=== PATIENT | female | born 2000 | race Caucasian/White ===

== ENCOUNTER 2019-12-09 04:15 | Emergency (ER) | payer OTHER ==
[~2019-12-09] VITALS: Ht 165.1 cm; Wt 75.2 kg
--- NOTE | 2019-12-09 04:39 | ED GU-Female ---
General Chief Complaint: Abdominal/GI Problems Stated Complaint: BACK PAIN,VOMITING Nursing Triage Note: pt states back pain with n/v/d started around 1930 tonight, pt has not taken anything for symptoms Nursing Sepsis Screen: No Definite Risk Source: patient Exam Limitations: no limitations History of Present Illness Date Seen by Provider: Dec 09, 2019 Time Seen by Provider: 04:35 Initial Comments 19-year-old female presents with nausea, vomiting, diarrhea started around 7:30 PM last night. Patient also complains of diffuse abdomen pain but worse in the epigastric and lower part of her abdomen. With severe pain in her back. She does not have any cough or fever. He does not have any dysuria. She does not believe she is because she has an IUD. Allergies and Home Medications Allergies Coded Allergies: No Known Drug Allergies (Unverified , 12/09/19) Patient Home Medication List Home Medication List Reviewed: Yes Review of Systems Review of Systems Constitutional: chills, fever Respiratory: No cough, No short of breath Cardiovascular: No chest pain Gastrointestinal: abdominal pain, diarrhea, nausea, vomiting Genitourinary: no symptoms reported Musculoskeletal: back pain Skin: no symptoms reported Psychiatric/Neurological: No Symptoms Reported Endocrine: No Symptoms Reported Past Ykzkech-Uvgnvk-Lxjoam Hx Past Med/Social Hx: Reviewed Nursing Past Med/Soc Hx Patient Social History Alcohol Use: Denies Use Recreational Drug Use: No Smoking Status: Never a Smoker 2nd Hand Smoke Exposure: No Recent Foreign Travel: No Contact w/Someone Who Travel: No Recent Infectious Disease Expo: No Recent Hopitalizations: No Physical Abuse: No Sexual Abuse: No Mistreated: No Fear: No Seasonal Allergies Seasonal Allergies: No Past Medical History Surgeries: No Respiratory: No Cardiac: No Neurological: No Genitourinary: No Gastrointestinal: No Musculoskeletal: No Endocrine: No HEENT: No Cancer: No Psychosocial: No Integumentary: No Blood Disorders: No Physical Exam Vital Signs Vital Signs - First Documented 12/09/19 04:29 Temp 36.6 Pulse 117 Resp 18 B/P (MAP) 117/71 (86) Pulse Ox 100 O2 Delivery Room Air Capillary Refill : Less Than 3 Seconds Height, Weight, BMI Height: '" Weight: lbs. oz. 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, alert, normal mood/affect, oriented x 3 Skin: normal color, warm/dry Progress/Results/Core Measures Suspected Sepsis Recent Fever Within 48 Hours: No Infection Criteria Present: None New/Unexplained Altered Menta: No Sepsis Screen: No Definite Risk SIRS Temperature: Pulse: 117 Respiratory Rate: 18 Laboratory Tests 12/09/19 04:50: White Blood Count 17.0H Blood Pressure 117 /71 Mean: 86 Laboratory Tests 12/09/19 04:50: Creatinine 0.66, Platelet Count 305, Total Bilirubin 1.0 Results/Orders Lab Results Laboratory Tests Test 12/09/19 04:30 12/09/19 04:50 Range/Units Urine Color YELLOW Urine Clarity CLOUDY Urine pH 5.5 5-9 Urine Specific [place] >=1.030 1.016-1.022 Urine Protein NEGATIVE NEGATIVE Urine Glucose (UA) NEGATIVE NEGATIVE Urine Ketones 1+ H NEGATIVE Urine Nitrite NEGATIVE NEGATIVE Urine Bilirubin NEGATIVE NEGATIVE Urine Urobilinogen 0.2 < = 1.0 MG/DL Urine Leukocyte Esterase TRACE H NEGATIVE Urine RBC (Auto) TRACE H NEGATIVE Urine RBC NONE /HPF Urine WBC RARE /HPF Urine Squamous Epithelial Cells RARE /HPF Urine Crystals NONE /LPF Urine Bacteria NA /HPF Urine Casts NONE /LPF Urine Mucus NONE /LPF Urine Culture Indicated YES White Blood Count 17.0 H 4.3-11.0 10^3/uL Red Blood Count 5.49 4.35-5.85 10^6/uL Hemoglobin 15.8 11.5-16.0 G/DL Hematocrit 47 35-52 % Mean Corpuscular Volume 85 80-99 FL Mean Corpuscular Hemoglobin 29 25-34 PG Mean Corpuscular Hemoglobin Concent 34 32-36 G/DL Red Cell Distribution Width 12.9 10.0-14.5 % Platelet Count 305 130-400 10^3/uL Mean Platelet Volume 10.2 7.4-10.4 FL Neutrophils (%) (Auto) 90 H 42-75 % Lymphocytes (%) (Auto) 4 L 12-44 % Monocytes (%) (Auto) 6 0-12 % Eosinophils (%) (Auto) 0 0-10 % Basophils (%) (Auto) 0 0-10 % Neutrophils # (Auto) 15.3 H 1.8-7.8 X 10^3 Lymphocytes # (Auto) 0.6 L 1.0-4.0 X 10^3 Monocytes # (Auto) 1.0 0.0-1.0 X 10^3 Eosinophils # (Auto) 0.0 0.0-0.3 10^3/uL Basophils # (Auto) 0.1 0.0-0.1 10^3/uL Neutrophils % (Manual) 78 % Lymphocytes % (Manual) 6 % Monocytes % (Manual) 3 % Eosinophils % (Manual) 0 % Basophils % (Manual) 0 % Metamyelocytes % 1 % Myelocytes % 1 % Band Neutrophils 11 % Sodium Level 137 135-145 MMOL/L Potassium Level 4.3 3.6-5.0 MMOL/L Chloride Level 103 98-107 MMOL/L Carbon Dioxide Level 18 L 21-32 MMOL/L Anion Gap 16 H 5-14 MMOL/L Blood Urea Nitrogen 12 7-18 MG/DL Creatinine 0.66 0.60-1.30 MG/DL Estimat Glomerular Filtration Rate > 60 BUN/Creatinine Ratio 18 Glucose Level 124 H 70-105 MG/DL Calcium Level 9.2 8.5-10.1 MG/DL Corrected Calcium 8.9 8.5-10.1 MG/DL Total Bilirubin 1.0 0.1-1.0 MG/DL Aspartate Amino Transf (AST/SGOT) 15 5-34 U/L Alanine Aminotransferase (ALT/SGPT) 14 0-55 U/L Alkaline Phosphatase 98 40-136 U/L Total Protein 7.7 6.4-8.2 GM/DL Albumin 4.4 3.2-4.5 GM/DL Lipase 14 8-78 U/L Serum Test, Qualitative NEGATIVE NEGATIVE My Orders Orders - BARRAZA,SIMEON L DO Cbc With Automated Diff (12/09/19 04:40) Comprehensive Metabolic Panel (12/09/19 04:40) Hcg,Qualitative Serum (12/09/19 04:40) Lipase (12/09/19 04:40) Ua Culture If Indicated (12/09/19 04:40) Ed Iv/Invasive Line Start (12/09/19 04:40) Ondansetron Injection (Zofran Injectio (12/09/19 04:45) Ns Iv 1000 Ml (Sodium Chloride 0.9%) (12/09/19 04:40) Ed Iv/Invasive Line Start (12/09/19 04:40) Acute Abd Series (12/09/19 04:40) Ketorolac Injection (Toradol Injection) (12/09/19 04:40) Manual Differential (12/09/19 04:50) Urine Culture (12/09/19 04:30) Medications Given in ED Current Medications Medications Dose Ordered Sig/John Route Start Time Stop Time Status Last Admin Dose Admin Ondansetron HCl 4 mg ONCE ONCE IVP 12/09/19 04:45 12/09/19 04:46 DC 12/09/19 04:54 4 MG Vital Signs/I&O 12/09/19 04:29 Temp 36.6 Pulse 117 Resp 18 B/P (MAP) 117/71 (86) Pulse Ox 100 O2 Delivery Room Air Capillary Refill : Less Than 3 Seconds Blood Pressure Mean: 86 Progress Note : Time: 05:48 Progress Note Patient's symptoms improved following IV fluids and Zofran. Have elevated white count consistent with vomiting and likely some mild dehydration. Patient with an illness that is consistent with a viral gastroenteritis. She will be discharged home with a prescription for Zofran. She should return to the ER as needed. She should not return to work until 24 hours after the vomiting and diarrhea resolves. Diagnostic Imaging Diagonstic Imaging: Xray Plain Films/CT/US/NM/MRI: chest, abdomen Comments No acute findings Reviewed: Reviewed by Me Departure Impression Primary Impression: Viral gastroenteritis Disposition: 01 HOME, SELF-CARE Condition: Stable Departure-Patient Inst. Referrals: NO,LOCAL PHYSICIAN (PCP/Family) Primary Care Physician Patient Instructions: Viral Gastroenteritis Add. Discharge Instructions: Emergency department focuses on treating and ruling out life-threatening disea ses. Whenever possible, a diagnosis is given. However, most patients are given an impression based on their history, physical exam, and workup during your brief time in the ER. Information about probable diagnosis and other educational material has been provided. Please take the time to read and understand this information. It is very important that you follow up with a physician as discussed during the visit today. Failure to adhere to your follow-up instructions may lead to severe disability, injury, or so please make sure to keep your appointments or obtain one as requested. Please keep in mind the emergency department is not designed to your primary care or "family doctor" and nonurgent issues are best evaluated by an outpatient physician All discharge instructions reviewed with patient and/or family. Voiced understanding. Scripts Ondansetron (Ondansetron Odt) 4 Mg Tab.rapdis 4 MG PO Q6H PRN for NAUSEA/VOMITING, #20 TAB 0 Refills Prov: SIMEON BARRAZA DO 12/09/19 Work/School Note: Work Release Form Date Seen in the Emergency Department: Dec 09, 2019 Return to Work: Dec 12, 2019 SIMEON BARRAZA DO Dec 09, 2019 04:39
[2019-12-09] MEDS ORDERED: KETOROLAC 30 MG/ML VIAL IVP STA (04:40)
[2019-12-09] MEDS ORDERED: NS IV 1000 ML 1,000 ML IV STA (04:40)
[2019-12-09] MEDS ORDERED: ONDANSETRON 4 MG/2 ML (SDV) Z0FRAN IVP ONE (04:45)
[2019-12-09 05:18] LABS: HEMATOCRIT 47 % (35-52); HEMOGLOBIN 15.8 G/DL (11.5-16.0); MEAN CORPUSCULAR HEMOGLOBIN 29 PG (25-34); MEAN CORPUSCULAR HGB CONC 34 G/DL (32-36); MEAN CORPUSCULAR VOLUME 85 FL (80-99); MEAN PLATELET VOLUME 10.2 FL (7.4-10.4); PLATELET COUNT 305 10^3/uL (130-400); RED CELL DISTRIBUTION WIDTH 12.9 % (10.0-14.5)
[2019-12-09 05:19] LABS: BASOPHILS # (AUTO) 0.1 10^3/uL (0.0-0.1); BASOPHILS % (AUTO) 0 % (0-10); EOSINOPHILS % (AUTO) 0 % (0-10); LYMPHOCYTES # (AUTO) 0.6 X 10^3 (1.0-4.0); LYMPHOCYTES % (AUTO) 4 % (12-44); MONOCYTES % (AUTO) 6 % (0-12); NEUTROPHILS # (AUTO) 15.3 X 10^3 (1.8-7.8); NEUTROPHILS % (AUTO) 90 % (42-75)
[2019-12-09 05:23] LABS: BILIRUBIN,URINE NEGATIVE (NEGATIVE); CLARITY,URINE CLOUDY; COLOR,URINE YELLOW; GLUCOSE, URINE (UA) NEGATIVE (NEGATIVE); KETONES,URINE 1+ (NEGATIVE); LEUKOCYTE ESTERASE ,URINE TRACE (NEGATIVE); NITRITE,URINE NEGATIVE (NEGATIVE); PH,URINE 5.5 (5-9); PROTEIN,URINE NEGATIVE (NEGATIVE)
[2019-12-09 05:24] LABS: SQUAMOUS EPITHELIAL CELL,UR RARE /HPF; WBC,URINE RARE /HPF
[2019-12-09 05:35] LABS: ALANINE AMINOTRANSFERASE 14 U/L (0-55); ALKALINE PHOSPHATASE 98 U/L (40-136); BUN/CREATININE RATIO 18; CALCIUM 9.2 MG/DL (8.5-10.1); CARBON DIOXIDE 18 MMOL/L (21-32); CHLORIDE 103 MMOL/L (98-107); CREATININE SERUM 0.66 MG/DL (0.60-1.30); GFR ESTIMATED > 60; GLUCOSE 124 MG/DL (70-105); POTASSIUM 4.3 MMOL/L (3.6-5.0); SODIUM 137 MMOL/L (135-145); TOTAL PROTEIN 7.7 GM/DL (6.4-8.2)
[2019-12-09 05:36] LABS: ALBUMIN 4.4 GM/DL (3.2-4.5); LIPASE 14 U/L (8-78)
[2019-12-09 05:46] LABS: BAND NEUTROPHILS 11 %; BASOPHILS % (MANUAL) 0 %; EOSINOPHILS % (MANUAL) 0 %; LYMPHOCYTES % (MANUAL) 6 %; METAMYELOCYTES % 1 %; MONOCYTES % (MANUAL) 3 %; MYELOCYTES % 1 %; NEUTROPHILS % (MANUAL) 78 %
[2019-12-09] MEDS ORDERED: ONDA4TAB11 PO (05:50)
[2019-12-09 05:55] VITALS: BP 125/74
--- NOTE | 2019-12-09 06:12 | Diagnostic Imaging Report ---
INDICATION: Nausea, emesis and diarrhea Supine and upright views of the abdomen are obtained with single view of the chest. The lungs are clear, bilaterally. Bowel gas pattern is unremarkable. There is no evidence of free intraperitoneal gas or pneumatosis. Pelvic intrauterine device is noted. IMPRESSION: No acute abnormality. Dictated by: Dictated on workstation # [id number]
== END 2019-12-09 05:55 | disposition home or self-care (01) ==
LOC: ER FS 04:21
DX: A08.4 Viral intestinal infection, unspecified (principal)
CPT/HCPCS: 36415; 74022; 80053; 81000; 83690; 84703; 85007; 85027; 87088

== ENCOUNTER 2022-03-21 12:51 | Emergency (ER) | payer OTHER ==
[~2022-03-21] VITALS: Ht 165.1 cm; Wt 107.9 kg
[~2022-03-21 12:51] MED LIST: ONDA4TAB11 PO
--- NOTE | 2022-03-21 13:01 | ED General ---
History of Present Illness Date Seen by Provider: Mar 21, 2022 Time Seen by Provider: 12:59 Initial Comments 22-year-old female presents with diffuse abdominal pain along with some pain that goes up into her chest. She reports is been going on for at least 5 days. She was seen 3 days ago at urgent care where they were concerned about PID and started her on 2 antibiotics. Patient has a history of chlamydia that was cleared 6 months ago patient has some nausea but no vomiting. She denies any fever, chills. She denies cough. She has no abnormal vaginal drainage. She does have some occasional bleeding has been going on for a while and currently has an IUD. Allergies and Home Medications Allergies Coded Allergies: No Known Drug Allergies (Unverified , 12/09/19) Patient Home Medication List Home Medication List Reviewed: Yes Dicyclomine HCl (Dicyclomine HCl) 20 Mg Tablet, 20 MG PO QID Prescribed by: SIMEON BARRAZA on 03/21/22 1540 Ondansetron (Ondansetron Odt) 4 Mg Tab.rapdis, 4 MG PO Q6H PRN for NAUSEA/VOMITING Prescribed by: SIMEON BARRAZA on 12/09/19 0550 Review of Systems Review of Systems Constitutional: No chills, No fever Respiratory: No cough, No short of breath Cardiovascular: chest pain Gastrointestinal: abdominal pain; No constipation, No diarrhea; nausea; No vomiting Genitourinary: see HPI; No dysuria : No Musculoskeletal: no symptoms reported Skin: no symptoms reported Psychiatric/Neurological: No Symptoms Reported Hematologic/Lymphatic: No Symptoms Reported Past Ofkptxy-Redlpg-Klyemf Hx Seasonal Allergies Seasonal Allergies: No Past Medical History Surgeries: No Respiratory: No Cardiac: No Neurological: No Genitourinary: No Gastrointestinal: No Musculoskeletal: No Endocrine: No HEENT: No Cancer: No Psychosocial: No Integumentary: No Blood Disorders: No Physical Exam Vital Signs Vital Signs - First Documented 03/21/22 12:56 Temp 36.4 Pulse 69 Resp 16 B/P (MAP) 136/73 (94) Pulse Ox 96 O2 Delivery Room Air Capillary Refill : Height, Weight, BMI Height: '" Weight: lbs. oz. 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 Skin: Normal Color, Warm/Dry Progress/Results/Core Measures Suspected Sepsis SIRS Temperature: Pulse: Respiratory Rate: Laboratory Tests 03/21/22 13:05: White Blood Count 8.9 Blood Pressure / Mean: Laboratory Tests 03/21/22 13:05: Creatinine 0.71, Platelet Count 287, Total Bilirubin 0.5 Results/Orders Lab Results Laboratory Tests Test 03/21/22 13:05 03/21/22 13:32 Range/Units White Blood Count 8.9 4.3-11.0 10^3/uL Red Blood Count 5.01 3.80-5.11 10^6/uL Hemoglobin 14.6 11.5-16.0 g/dL Hematocrit 43 35-52 % Mean Corpuscular Volume 85 80-99 fL Mean Corpuscular Hemoglobin 29 25-34 pg Mean Corpuscular Hemoglobin Concent 34 32-36 g/dL Red Cell Distribution Width 12.6 10.0-14.5 % Platelet Count 287 130-400 10^3/uL Mean Platelet Volume 10.2 9.0-12.2 fL Immature Granulocyte % (Auto) 0 % Neutrophils (%) (Auto) 60 42-75 % Lymphocytes (%) (Auto) 31 12-44 % Monocytes (%) (Auto) 6 0-12 % Eosinophils (%) (Auto) 2 0-10 % Basophils (%) (Auto) 1 0-10 % Neutrophils # (Auto) 5.3 1.8-7.8 10^3/uL Lymphocytes # (Auto) 2.8 1.0-4.0 10^3/uL Monocytes # (Auto) 0.5 0.0-1.0 10^3/uL Eosinophils # (Auto) 0.2 0.0-0.3 10^3/uL Basophils # (Auto) 0.1 0.0-0.1 10^3/uL Immature Granulocyte # (Auto) 0.0 0.0-0.1 10^3/uL Sodium Level 140 135-145 MMOL/L Potassium Level 4.2 3.6-5.0 MMOL/L Chloride Level 108 H 98-107 MMOL/L Carbon Dioxide Level 21 21-32 MMOL/L Anion Gap 11 5-14 MMOL/L Blood Urea Nitrogen 10 7-18 MG/DL Creatinine 0.71 0.60-1.30 MG/DL Estimat Glomerular Filtration Rate 122 BUN/Creatinine Ratio 14 Glucose Level 122 H 70-105 MG/DL Calcium Level 9.2 8.5-10.1 MG/DL Corrected Calcium 9.1 8.5-10.1 MG/DL Magnesium Level 1.9 1.6-2.4 MG/DL Total Bilirubin 0.5 0.1-1.0 MG/DL Aspartate Amino Transf (AST/SGOT) 22 5-34 U/L Alanine Aminotransferase (ALT/SGPT) 32 0-55 U/L Alkaline Phosphatase 85 40-136 U/L Troponin I < 0.30 <0.30 NG/ML C-Reactive Protein < 0.30 <0.50 MG/DL Total Protein 7.2 6.4-8.2 GM/DL Albumin 4.1 3.2-4.5 GM/DL Lipase 23 8-78 U/L Urine Color YELLOW Urine Clarity CLOUDY Urine pH 6.0 5-9 Urine Specific [place] 1.025 H 1.016-1.022 Urine Protein NEGATIVE NEGATIVE Urine Glucose (UA) NEGATIVE NEGATIVE Urine Ketones NEGATIVE NEGATIVE Urine Nitrite NEGATIVE NEGATIVE Urine Bilirubin NEGATIVE NEGATIVE Urine Urobilinogen 0.2 < = 1.0 MG/DL Urine Leukocyte Esterase 1+ H NEGATIVE Urine RBC (Auto) NEGATIVE NEGATIVE Urine RBC NONE /HPF Urine WBC 2-5 /HPF Urine Squamous Epithelial Cells 2-5 /HPF Urine Crystals NONE /LPF Urine Bacteria TRACE /HPF Urine Casts NONE /LPF Urine Mucus NEGATIVE /LPF Urine Culture Indicated NO My Orders Orders - BARRAZA,SIMEON L DO Cbc With Automated Diff (03/21/22 13:02) Comprehensive Metabolic Panel (03/21/22 13:02) Lipase (03/21/22 13:02) Magnesium (03/21/22 13:02) Procalcitonin (Pct) (03/21/22 13:02) Ua Culture If Indicated (03/21/22 13:02) Crp Fs (03/21/22 13:02) Troponin I Fs (03/21/22 13:02) Neis Lukasz Dna Urine Test (03/21/22 13:02) Ondansetron Injection (Zofran Injectio (03/21/22 13:15) Ed Iv/Invasive Line Start (03/21/22 13:02) Acute Abd Series (03/21/22 13:03) Lidocaine 2% Viscous 15 Ml (Xylocaine Vi (03/21/22 14:00) Antacid Suspension (Mylanta Suspension (03/21/22 14:00) Hyoscyamine Sl Tablet (Levsin Sl Tablet) (03/21/22 14:45) Dicyclomine Injection (Bentyl Injection) (03/21/22 14:45) Medications Given in ED Current Medications Medications Dose Ordered Sig/John Route Start Time Stop Time Status Last Admin Dose Admin Al Hydrox/Mg Hydrox/Simethicone 30 ml ONCE ONCE PO 03/21/22 14:00 03/21/22 14:01 DC 03/21/22 14:03 30 ML Dicyclomine HCl 20 mg ONCE ONCE IM 03/21/22 14:45 03/21/22 14:46 DC 03/21/22 14:58 20 MG Hyoscyamine Sulfate 0.125 mg ONCE ONCE PO 03/21/22 14:45 03/21/22 14:46 DC 03/21/22 14:58 0.125 MG Lidocaine HCl 15 ml ONCE ONCE PO 03/21/22 14:00 03/21/22 14:01 DC 03/21/22 14:03 15 ML Ondansetron HCl 4 mg ONCE ONCE IVP 03/21/22 13:15 03/21/22 13:16 DC 03/21/22 13:27 4 MG Vital Signs/I&O 03/21/22 12:56 Temp 36.4 Pulse 69 Resp 16 B/P (MAP) 136/73 (94) Pulse Ox 96 O2 Delivery Room Air Capillary Refill : Progress Note : Progress Note Patient's pain/pressure is mainly located in the epigastric region. Patient with no acute lab findings or x-ray findings or significant exam findings. Her symptoms are likely gastritis/reflux. Recommended to her that she start Pepcid twice daily and Protonix. That her symptoms will take a little while to significantly improve and go to 0. I will also give her some Bentyl to help with the cramping. Recommend if she is not better in 7 to 10 days she follows up with her primary care provider for recheck. Patient stable and discharged home ECG Initial ECG Impression Date: Mar 21, 2022 Initial ECG Impression Time: 12:57 Departure Impression Primary Impression: Abdominal discomfort, epigastric Additional Impression: Gastritis Qualified Codes: K29.70 - Gastritis, unspecified, without bleeding Disposition: HOME, SELF-CARE Condition: Stable Departure-Patient Inst. Referrals: NO,LOCAL PHYSICIAN (PCP/Family) Primary Care Physician Patient Instructions: Gastritis ED, Acid Reflux and GERD in Adults (DC), Stomach Ache and Stomach Upset Add. Discharge Instructions: Please start Pepcid 20 mg twice daily and Protonix 20 mg daily Follow-up with your primary care provider if symptoms have not seemingly improve d in 7 to 10 days Scripts Dicyclomine HCl (Dicyclomine HCl) 20 Mg Tablet 20 MG PO QID, #20 TAB Prov: SIMEON BARRAZA DO 03/21/22 SIMEON BARRAZA DO Mar 21, 2022 13:01
[2022-03-21 13:10] LABS: BASOPHILS # (AUTO) 0.1 10^3/uL (0.0-0.1); BASOPHILS % (AUTO) 1 % (0-10); EOSINOPHILS # (AUTO) 0.2 10^3/uL (0.0-0.3); EOSINOPHILS % (AUTO) 2 % (0-10); HEMATOCRIT 43 % (35-52); HEMOGLOBIN 14.6 g/dL (11.5-16.0); LYMPHOCYTES # (AUTO) 2.8 10^3/uL (1.0-4.0); LYMPHOCYTES % (AUTO) 31 % (12-44); MEAN CORPUSCULAR HEMOGLOBIN 29 pg (25-34); MEAN CORPUSCULAR HGB CONC 34 g/dL (32-36); MEAN CORPUSCULAR VOLUME 85 fL (80-99); MEAN PLATELET VOLUME 10.2 fL (9.0-12.2); MONOCYTES # (AUTO) 0.5 10^3/uL (0.0-1.0); MONOCYTES % (AUTO) 6 % (0-12); NEUTROPHILS # (AUTO) 5.3 10^3/uL (1.8-7.8); NEUTROPHILS % (AUTO) 60 % (42-75); PLATELET COUNT 287 10^3/uL (130-400); WHITE BLOOD COUNT 8.9 10^3/uL (4.3-11.0)
[2022-03-21] MEDS ORDERED: ONDANSETRON 4 MG/2 ML (SDV) Z0FRAN IVP ONE (13:15)
[2022-03-21 13:35] LABS: CARBON DIOXIDE 21 MMOL/L (21-32); CHLORIDE 108 MMOL/L (98-107); POTASSIUM 4.2 MMOL/L (3.6-5.0); SODIUM 140 MMOL/L (135-145)
[2022-03-21 13:36] LABS: ALANINE AMINOTRANSFERASE 32 U/L (0-55); ALBUMIN 4.1 GM/DL (3.2-4.5); ALKALINE PHOSPHATASE 85 U/L (40-136); BILIRUBIN,TOTAL 0.5 MG/DL (0.1-1.0); BUN/CREATININE RATIO 14; CALCIUM 9.2 MG/DL (8.5-10.1); CREATININE SERUM 0.71 MG/DL (0.60-1.30); GFR ESTIMATED 122; GLUCOSE 122 MG/DL (70-105); LIPASE 23 U/L (8-78); MAGNESIUM 1.9 MG/DL (1.6-2.4); TOTAL PROTEIN 7.2 GM/DL (6.4-8.2)
--- NOTE | 2022-03-21 13:40 | Diagnostic Imaging Report ---
INDICATION: Epigastric pain radiating into the chest. FINDINGS: Lungs are clear. No failure, effusion, or pneumothorax. The bowel gas pattern is normal. There is some stool in the colon, but the fecal load is not grossly pathologic. There is an IUD device in the midline pelvis. No suspicious calcifications. IMPRESSION: No acute finding at the acute abdominal series. Dictated by: Dictated on workstation # [id number]
[2022-03-21 13:54] LABS: BILIRUBIN,URINE NEGATIVE (NEGATIVE); CLARITY,URINE CLOUDY; COLOR,URINE YELLOW; GLUCOSE, URINE (UA) NEGATIVE (NEGATIVE); KETONES,URINE NEGATIVE (NEGATIVE); LEUKOCYTE ESTERASE ,URINE 1+ (NEGATIVE); NITRITE,URINE NEGATIVE (NEGATIVE); PROTEIN,URINE NEGATIVE (NEGATIVE)
[2022-03-21] MEDS ORDERED: ANTACID SUSP 30 ML UDC (MYLANTA) PO ONE (14:00)
[2022-03-21] MEDS ORDERED: LIDOCAINE 2% VISCOUS 15 ML UDC PO ONE (14:00)
[2022-03-21 14:12] LABS: BACTERIA,URINE TRACE /HPF
[2022-03-21] MEDS ORDERED: HYOSCYAMINE 0.125 MG (LEVSIN) TAB PO ONE (14:45)
[2022-03-21] MEDS ORDERED: DICYCLOMINE 10 MG/ML (BENTYL) 2 ML AMP IM ONE (14:45)
[2022-03-21] MEDS ORDERED: DICY20TA PO (15:40)
[2022-03-21 15:45] VITALS: BP 118/74
== END 2022-03-21 15:45 | disposition home or self-care (01) ==
LOC: EDUNIT# 12:51 → ER FS 12:55
DX: K29.70 Gastritis, unspecified, without bleeding (principal); Z97.5 Presence of (intrauterine) contraceptive device; Z28.310 Unvaccinated for COVID-19
CPT/HCPCS: 36415; 74022; 80053; 81000; 83690; 83735; 84145; 84484; 85025; 86141; 87591; 93005